=== PATIENT | female | born 1960 | race African-American/Black ===

== ENCOUNTER 2018-02-28 13:42 | Inpatient (IN) | payer OTHER ==
[~2018-02-28] VITALS: Ht 160 cm; Wt 73.5 kg
[2018-02-28] MEDS ORDERED: SODIUM CHLORIDE 0.9% 1,000 ML IV ONE (15:00)
[2018-02-28 17:04] LABS: BASOPHILS % 0.4 % (0.0-2.0); EOSINOPHILS % 0.8 % (0.0-5.0); HEMOGLOBIN. 11.2 g/dL (12.0-16.0); MEAN CORPUSCULAR HEMOGLOBIN 30.6 pg (28.0-32.0); MEAN CORPUSCULAR VOLUME 92.8 fL (81.0-99.0); MEAN PLATELET VOLUME 9.6 fl (7.4-10.4); MONOCYTES % 2.9 % (2.0-8.0); NEUTROPHILS % 82.9 % (40.0-76.0); PLATELET 228 x1000/uL (130-400); RED BLOOD CELL COUNT 3.66 mill/uL (4.2-5.4); RED CELL DISTRIBUTION WIDTH 16.7 % (11.6-14.6)
[2018-02-28 17:10] LABS: CHLORIDE 107 mEq/L (98-107)
[2018-02-28 17:32] LABS: PLATELET ESTIMATE NORMAL
[2018-02-28 19:35] LABS: CLARITY URINE CLOUDY (CLEAR); COLOR URINE YELLOW (YELLOW); KETONES URINE NEGATIVE (NEGATIVE); LEUKOCYTE ESTERASE URINE 1+ (NEGATIVE); NITRITE URINE NEGATIVE (NEGATIVE); OCCULT BLOOD URINE TRACE (NEGATIVE); PROTEIN URINE TRACE (NEGATIVE); SPECIFIC GRAVITY URINE 1.017 (1.005-1.030); UROBILINOGEN URINE 0.2 E.U./dL (0.2-1.0)
[2018-02-28] MEDS ORDERED: CEFTRIAXONE 1 G PREMIX 50 ML IV ONE (20:00)
[2018-02-28] MEDS ORDERED: HYDRALAZINE 20MG/ML VIAL IV ONE (21:00)
[2018-02-28 23:03] VITALS: BP 158/79
[2018-02-28] MEDS ORDERED: HYDROCODONE/ACETAMINOPHEN 5/325MG TABLET PO PRN (23:30)
[2018-03-01] MEDS: HYDROCHLOROTHIAZIDE 25MG TABLET PO SCH ×2 (00:10→10:10)
[2018-03-01 04:10] VITALS: BP 163/80
[2018-03-01] MEDS ORDERED: LISI-604 MT (07:40)
[2018-03-01] MEDS ORDERED: HYDR-4001 PO (07:40)
[2018-03-01] MEDS ORDERED: ASPI-1079 PO (07:40)
[2018-03-01] MEDS ORDERED: HYDR25TA MT (07:40)
[2018-03-01] MEDS ORDERED: GABA-531 PO (07:40)
[2018-03-01] MEDS ORDERED: METF-414 PO (07:40)
[2018-03-01 08:00] VITALS: BP 103/56
[2018-03-01 08:21] LABS: BASOPHILS % 0.4 % (0.0-2.0); EOSINOPHILS % 1.6 % (0.0-5.0); HEMATOCRIT. 29.4 % (36.0-48.0); HEMOGLOBIN. 9.8 g/dL (12.0-16.0); LYMPHOCYTES % 37.1 % (20.0-50.0); MEAN CORPUSCULAR HEMOGLOBIN 30.6 pg (28.0-32.0); MEAN CORPUSCULAR VOLUME 91.8 fL (81.0-99.0); MEAN PLATELET VOLUME 8.5 fl (7.4-10.4); MONOCYTES % 7.4 % (2.0-8.0); NEUTROPHILS % 53.5 % (40.0-76.0); PLATELET 238 x1000/uL (130-400); RED CELL DISTRIBUTION WIDTH 16.2 % (11.6-14.6)
[2018-03-01] MEDS ORDERED: INFLUENZA VIRUS VACCINE(AFLURIA) 0.5ML SYR IM ONE (09:00)
[2018-03-01] MEDS ORDERED: LISINOPRIL 20MG TABLET PO SCH (09:00)
[2018-03-01] MEDS ORDERED: ASPIRIN 81MG TABLET PO SCH (09:00)
[2018-03-01] MEDS ORDERED: METFORMIN HCL 500MG TABLET PO SCH (09:00)
[2018-03-01 09:46] LABS: CHLORIDE 109 mEq/L (98-107)
[2018-03-01] MEDS: GABAPENTIN 300MG CAPSULE PO SCH ×2 (10:10→16:19)
[2018-03-01 12:00] VITALS: BP 126/56
[2018-03-01] MEDS ORDERED: POTASSIUM CHLORIDE 20MEQ/PACKET PO NR (15:30)
[2018-03-01 16:00] VITALS: BP 133/72
[2018-03-01] MEDS ORDERED: CEFTRIAXONE 1 G PREMIX 50 ML IV SCH ×2 (17:30→18:30)
[2018-03-01 20:00] VITALS: BP 155/87
[2018-03-01] MEDS ORDERED: ENOXAPARIN 40MG/0.4ML SYR SUBCUT SCH (21:00)
== END 2018-03-01 23:50 | disposition short-term general hospital (02) | DRG 463 ==
LOC: ER 13:42 → 6WST 20:19 → EDBEDREQTM 20:21 → EDBEDREQ 20:21 → ENRESERV 20:52
PROVIDERS: ADMIT Internal Medicine; ATTEND Internal Medicine
DX: N39.0 Urinary tract infection, site not specified (principal); G92 Toxic encephalopathy; I69.354 Hemiplegia and hemiparesis following cerebral infarction affecting left non-dominant side; E11.9 Type 2 diabetes mellitus without complications; E86.0 Dehydration; I10 Essential (primary) hypertension; Z79.899 Other long term (current) drug therapy; Z79.82 Long term (current) use of aspirin
CPT/HCPCS: 36415; 71045; 80048; 80061; 82962; 90686; 93005; 96361; 96365; 96375; 99285; J0360; J0696; J1650; J7050

== ENCOUNTER 2019-01-26 10:09 | Inpatient (IN) | payer OTHER ==
[2019-01-26] VITALS (22 sets, daily range): BP systolic 104–167; BP diastolic 51–89
[~2019-01-26] VITALS: Ht 160 cm; Wt 73.0 kg
[~2019-01-26 10:09] MED LIST: ASPI-1079 PO; GABA-531 PO; HYDR-4001 PO; HYDR25TA MT; LISI-604 MT; METF-414 PO
[2019-01-26] MEDS ORDERED: ENALAPRIL 2.5MG/2ML VIAL 2ML IV ONE (11:30)
[2019-01-26 11:52] LABS: PROTHROMBIN TIME 10.5 sec (9.6-11.0)
[2019-01-26 11:53] LABS: CHLORIDE 106 mEq/L (98-107)
[2019-01-26 11:59] LABS: ETHANOL BLOOD < 10 mg/dL
[2019-01-26] MEDS ORDERED: NICARDIPINE 40MG/200ML PREMIX 200 ML IV STA (12:12)
[2019-01-26 12:18] LABS: BASOPHILS % 0.7 % (0.0-2.0); EOSINOPHILS % 1.7 % (0.0-5.0); HEMATOCRIT. 37.5 % (36.0-48.0); HEMOGLOBIN. 12.4 g/dL (12.0-16.0); LYMPHOCYTES % 32.7 % (20.0-50.0); MEAN CORPUSCULAR HEMOGLOBIN 29.3 pg (28.0-32.0); MEAN CORPUSCULAR VOLUME 88.4 fL (81.0-99.0); MEAN PLATELET VOLUME 8.7 fl (7.4-10.4); MONOCYTES % 5.6 % (2.0-8.0); NEUTROPHILS % 59.3 % (40.0-76.0); PLATELET 199 x1000/uL (130-400); RED BLOOD CELL COUNT 4.24 mill/uL (4.2-5.4); RED CELL DISTRIBUTION WIDTH 15.2 % (11.6-14.6)
[2019-01-26] MEDS ORDERED: CEFTRIAXONE 1 G PREMIX 50 ML IV ONE (13:00)
[2019-01-26] MEDS ORDERED: CLONIDINE 0.1MG TABLET PO PRN ×2 (13:15→18:00)
[2019-01-26] MEDS ORDERED: ONDANSETRON HCL 4MG/2ML INJ IV PRN (13:15)
[2019-01-26] MEDS ORDERED: ACETAMINOPHEN 325MG TABLET PO PRN (13:15)
[2019-01-26] MEDS ORDERED: DIPHENHYDRAMINE 50MG/ML VIAL IV PRN (13:15)
[2019-01-26] MEDS ORDERED: NA PHOS,M-B/NA PHOS,DI-BA ENEMA 118ML PR PRN (13:15)
[2019-01-26] MEDS ORDERED: MAGNESIUM/ALUMINUM HYDROXIDE/SIMETHICONE 30ML UDC PO PRN (13:15)
[2019-01-26] MEDS ORDERED: GUAIFENESIN 200MG/10ML SUGAR FREE UDC PO PRN (13:15)
[2019-01-26] MEDS ORDERED: DOCUSATE SODIUM 100MG CAPSULE PO PRN (13:15)
[2019-01-26] MEDS ORDERED: LORAZEPAM 2MG/ML CPJ IV PRN (13:15)
[2019-01-26] MEDS ORDERED: HYDROCODONE/ACETAMINOPHEN 5/325MG TABLET PO PRN (13:15)
[2019-01-26] MEDS ORDERED: IPRATROPIUM/ALBUTEROL 0.5-3(2.5)MG/3ML NEB HHN PRN (13:15)
[2019-01-26 15:35] LABS: CLARITY URINE CLEAR (CLEAR); COLOR URINE YELLOW (YELLOW); KETONES URINE NEGATIVE (NEGATIVE); LEUKOCYTE ESTERASE URINE NEGATIVE (NEGATIVE); NITRITE URINE NEGATIVE (NEGATIVE); OCCULT BLOOD URINE NEGATIVE (NEGATIVE); PH URINE 8.5 (4.5-8.0); PROTEIN URINE NEGATIVE (NEGATIVE); SPECIFIC GRAVITY URINE 1.006 (1.005-1.030); UROBILINOGEN URINE 0.2 E.U./dL (0.2-1.0)
[2019-01-26 16:07] LABS: CHLORIDE 112 mEq/L (98-107)
[2019-01-26 16:38] LABS: *AMPHETAMINES SCREEN URINE NEGATIVE (NEGATIVE); *BARBITURATES SCREEN URINE NEGATIVE (NEGATIVE); *BENZODIAZEPINES SCREEN URINE NEGATIVE (NEGATIVE); *COCAINE SCREEN URINE NEGATIVE (NEGATIVE); CANNABINOID URINE SCREEN NEGATIVE (NEGATIVE); METHADONE URINE SCREEN NEGATIVE (NEGATIVE); OPIATES URINE SCREEN NEGATIVE (NEGATIVE); PHENCYCLIDINE URINE SCREEN NEGATIVE (NEGATIVE)
[2019-01-26] MEDS ORDERED: NICARDIPINE 40MG/200ML PREMIX 200 ML IV SCH (17:00)
[2019-01-26] MEDS: ENOXAPARIN 40MG/0.4ML SYR SUBCUT SCH (17:00)
[2019-01-26] MEDS ORDERED: NICARDIPINE 50 MG in SODIUM CHLORIDE 0.9% 230 ML IV PRN ×2 (17:15→17:36)
[2019-01-26] MEDS: AMLODIPINE 10MG TABLET PO SCH (17:42)
[2019-01-26] MEDS: METOPROLOL TARTRATE 25MG TABLET PO SCH (17:42)
[2019-01-26] MEDS ORDERED: HYDRALAZINE 20MG/ML VIAL IV PRN (18:00)
[2019-01-26] MEDS ORDERED: POTASSIUM CHLORIDE 20MEQ TABLET SR PO NR (18:30)
[2019-01-26] MEDS ORDERED: DEXTROSE 50% WATER 50ML SYRINGE IV PRN (21:00)
[2019-01-26] MEDS: BLOOD SUGAR DIAGNOSTIC STRIP TEST SCH (21:00)
[2019-01-26] MEDS: INSULIN LISPRO 100 UNITS/ML SUBCUT SCH (21:00)
[2019-01-27] VITALS (24 sets, daily range): BP systolic 83–153; BP diastolic 50–97
[2019-01-27] MEDS: MORPHINE SULFATE 2 MG/ML CPJ (NOT FOR IM USE) IV PRN (04:10)
[2019-01-27 05:48] LABS: BASOPHILS % 0.3 % (0.0-2.0); EOSINOPHILS % 1.6 % (0.0-5.0); HEMATOCRIT. 39.5 % (36.0-48.0); LYMPHOCYTES % 20.5 % (20.0-50.0); MEAN CORPUSCULAR HEMOGLOBIN 29.3 pg (28.0-32.0); MEAN CORPUSCULAR VOLUME 89.4 fL (81.0-99.0); MEAN PLATELET VOLUME 8.8 fl (7.4-10.4); MONOCYTES % 5.5 % (2.0-8.0); NEUTROPHILS % 72.1 % (40.0-76.0); PLATELET 181 x1000/uL (130-400); RED BLOOD CELL COUNT 4.42 mill/uL (4.2-5.4); RED CELL DISTRIBUTION WIDTH 15.5 % (11.6-14.6)
[2019-01-27 05:52] LABS: CHLORIDE 108 mEq/L (98-107)
[2019-01-27 06:01] LABS: LDL CHOLESTEROL 135 mg/dL (5-100); T4 FREE 0.86 ng/dL (0.76-1.46)
[2019-01-27 06:02] LABS: CREATINE KINASE 203 IU/L (26-192); HDL CHOLESTEROL 73 mg/dL (40-59)
[2019-01-27 06:04] LABS: CREATINE KINASE MB FRACTION < 1.0 ng/mL (0.5-3.6)
[2019-01-27] MEDS: BLOOD SUGAR DIAGNOSTIC STRIP TEST SCH ×4 (07:42→21:00)
[2019-01-27] MEDS: INSULIN LISPRO 100 UNITS/ML SUBCUT SCH ×4 (07:43→21:00)
[2019-01-27] MEDS: ASPIRIN 81MG EC TABLET PO SCH (08:42)
[2019-01-27] MEDS: LISINOPRIL 20MG TABLET PO SCH (08:43)
[2019-01-27] MEDS: AMLODIPINE 10MG TABLET PO SCH (08:47)
[2019-01-27] MEDS: METOPROLOL TARTRATE 25MG TABLET PO SCH ×2 (12:07→21:59)
[2019-01-27] MEDS: ENOXAPARIN 40MG/0.4ML SYR SUBCUT SCH (16:59)
[2019-01-27] MEDS ORDERED: ATORVASTATIN CALCIUM 40MG TABLET PO SCH (21:00)
[2019-01-28] VITALS: BP 120/67
[2019-01-28 04:00] VITALS: BP 120/70
[2019-01-28] MEDS: MORPHINE SULFATE 2 MG/ML CPJ (NOT FOR IM USE) IV PRN (04:05)
[2019-01-28 06:39] LABS: BASOPHILS % 0.4 % (0.0-2.0); EOSINOPHILS % 2.2 % (0.0-5.0); HEMATOCRIT. 34.4 % (36.0-48.0); HEMOGLOBIN. 11.3 g/dL (12.0-16.0); LYMPHOCYTES % 41.2 % (20.0-50.0); MEAN CORPUSCULAR HEMOGLOBIN 29.1 pg (28.0-32.0); MEAN CORPUSCULAR VOLUME 88.3 fL (81.0-99.0); MONOCYTES % 4.9 % (2.0-8.0); NEUTROPHILS % 51.3 % (40.0-76.0); PLATELET 192 x1000/uL (130-400); RED BLOOD CELL COUNT 3.89 mill/uL (4.2-5.4); RED CELL DISTRIBUTION WIDTH 15.1 % (11.6-14.6)
[2019-01-28] MEDS: INSULIN LISPRO 100 UNITS/ML SUBCUT SCH ×2 (06:45→13:10)
[2019-01-28] MEDS: BLOOD SUGAR DIAGNOSTIC STRIP TEST SCH ×2 (06:45→12:40)
[2019-01-28 08:00] VITALS: BP 120/72
[2019-01-28] MEDS: METOPROLOL TARTRATE 25MG TABLET PO SCH (09:00)
[2019-01-28] MEDS: ASPIRIN 81MG EC TABLET PO SCH (09:25)
[2019-01-28] MEDS: AMLODIPINE 10MG TABLET PO SCH (09:25)
[2019-01-28] MEDS: LISINOPRIL 20MG TABLET PO SCH (09:25)
[2019-01-28 11:49] VITALS: BP 120/72
[2019-01-28 12:00] VITALS: BP 131/67
== END 2019-01-28 15:37 | disposition home or self-care (01) | DRG 199 ==
LOC: ER 10:09 → CVICU 12:13 → EDBEDREQTM 12:27 → EDBEDREQ 12:27 → EDBEDREQSVC 12:49 → CANRESERV 13:14 → ENRESERV 13:14 → 7WST 01-27 13:51
PROVIDERS: ADMIT Internal Medicine; ATTEND Internal Medicine
DX: I16.1 Hypertensive emergency (principal); I69.354 Hemiplegia and hemiparesis following cerebral infarction affecting left non-dominant side; E11.9 Type 2 diabetes mellitus without complications; E87.6 Hypokalemia; E78.00 Pure hypercholesterolemia, unspecified; R35.8 Other polyuria; I10 Essential (primary) hypertension; Z79.84 Long term (current) use of oral hypoglycemic drugs; Z79.899 Other long term (current) drug therapy; Z91.14 Patient's other noncompliance with medication regimen
CPT/HCPCS: 36415; 71045; 80048; 80061; 80305; 80320; 81003; 82550; 82553; 82962; 83036; 83735; 83880; 84439; 84443; 84484; 93005; 93306; 96365; 99291; J0696; J2270; J2405; J3490; J7050; A4315; G0480